=== PATIENT | male | born 1945 | race Caucasian/White ===

== ENCOUNTER 2017-03-07 13:17 | Emergency (ER) | payer MEDICARE ==
[2017-03-07 13:17] VITALS: BP 146/78
[~2017-03-07 13:17] MED LIST: DO NOT PROFILE T1 EA
[2017-03-07 14:01] LABS: BASO % 0.9 % (0.0-1.0); EOS # 0.2 10*3/uL (0.0-0.4); EOS % 4.3 % (1.0-4.0); HEMATOCRIT 40.3 % (42.0-52.0); HEMOGLOBIN 13.3 g/dl (14.0-18.0); LYMPH # 1.2 10*3/uL (1.3-4.4); LYMPH % 26.5 % (27.0-41.0); MEAN CELL VOLUME 90.2 fl (80.0-94.0); MEAN CORPUSCULAR HGB 29.8 pg (27.0-31.0); MEAN PLATELET VOLUME 9.2 fl (9.6-12.3); MONO # 0.6 10*3/uL (0.1-1.0); MONO % 11.8 % (3.0-9.0); NEUT # 2.6 10*3/uL (2.3-7.9); NEUT % 56.3 % (47.0-73.0); PLATELET COUNT AUTOMATED 143 10*3/uL (130-400); RED BLOOD COUNT 4.47 10*6/uL (4.50-5.90); RED CELL DISTRI WIDTH 14.3 % (0-14.5); WHITE BLOOD COUNT 4.7 10*3/uL (4.8-10.8)
[2017-03-07 14:24] LABS: ALBUMIN 3.4 gm/dl (3.1-4.5); ALKALINE PHOSPHATASE 79 U/L (45-117); BUN 15 mg/dl (7-24); CHLORIDE 105 mmol/L (98-107); CREATININE 0.85 mg/dL (0.70-1.30); SGOT/AST 12 IU/L (3-35); SGPT/ALT 19 U/L (12-78); SODIUM 138 mmol/L (136-145); TOTAL PROTEIN 6.9 gm/dL (6.4-8.2)
[2017-03-07 14:26] LABS: TROPONIN I < 0.015 ng/ml (<0.045)
[2017-03-07 14:40] LABS: ETHYL ALCOHOL < 3.0 mg/dl (<3)
[2017-03-07] MEDS ORDERED: EC NAPROSYN375 MG PO (16:00)
[2017-03-07] MEDS ORDERED: PROAIR HFA8.5 GM INH (16:01)
[2017-03-07] MEDS ORDERED: ULTRAM50 MG PO (16:02)
[2017-03-07] MEDS ORDERED: ATIVAN0.5 MG PO (16:03)
[2017-03-07 16:10] LABS: BILIRUBIN NEGATIVE (NEGATIVE); BLOOD NEGATIVE (NEGATIVE); CLARITY SL CLOUDY (CLEAR); COLOR YELLOW (YELLOW); GLUCOSE NEGATIVE (NEGATIVE); KETONE NEGATIVE (NEGATIVE); LEUKO ESTERASE NEGATIVE (NEGATIVE); NITRITE NEGATIVE (NEGATIVE); PH 5.5 (5.0-9.0); SPECIFIC GRAVITY 1.025 (1.005-1.030)
[2017-03-07 16:15] LABS: BACTERIA TRACE; MUCOUS 1+
[2017-03-07 16:16] LABS: CALCIUM OXALATE CRYSTALS 1+
[2017-03-07 16:19] LABS: URINE AMPHETAMINES < 1000 (1000ng/ml); URINE BARBITURATES < 200 (200ng/ml); URINE BENZODIAZEPINES > 200 (200ng/ml); URINE CANNABINOIDS (THC) > 50 (50ng/ml); URINE COCAINE < 300 (300ng/ml); URINE METHADONE < 300 (300ng/ml); URINE OPIATES < 300 (300ng/ml)
[2017-03-07 16:20] LABS: URINE PHENCYCLIDINE < 25 (25ng/ml)
== END 2017-03-07 19:52 | disposition admitted as inpatient to this hospital (09) ==
LOC: ED 13:17
PROVIDERS: Internal Medicine
DX: R45.851 Suicidal ideations (principal); F17.200 Nicotine dependence, unspecified, uncomplicated; Z88.6 Allergy status to analgesic agent

== ENCOUNTER 2017-03-07 14:24 | Inpatient (IN) | payer MEDICARE ==
[~2017-03-07] VITALS: Ht 177.8 cm; Wt 67.1 kg
--- NOTE | ~2017-03-07 | WRIGHTHP ---
[place], [place] PATIENT HISTORY AND PHYSICAL EXAM NAME: DARNELL JEAN BAPTISTE UNIT #: [id number] ROOM: 310 DOCTOR: LEAH MARTINS MD BIRTHDATE: [birth year] DOS: 03/08/2017 INITIAL PSYCHIATRIC EVALUATION. CHIEF COMPLAINT: "I just want to ." HISTORY OF PRESENT ILLNESS: This is a 72-year-old white male who presented to the Emergency Room at [facility] with a chief complaint of increased depression with suicidal ideation and a plan. The patient had reported that recently his had been hospitalized first here at [facility] and then transferred to [place] for hypoxia, leading to her brain . He was informed by the ICU doctors that because of this, he needed to make the decision to remove life support. He did agree with this and on the day prior to his admission here to the hospital at 11:00 a.m., He acquiesced to this decision causing his to pass away 4 minutes later. He blames himself for her , stating that he killed her and now there is no point for him to continue on without her. He did reach out to a english instructor and the english instructor did convince him to come to the Emergency Room at [facility] for intervention. The patient does have knives at home and states that this is how he would kill himself. He has not slept well since his 's passing. He has not eaten. He is very forlorn and does not see any reason to continue his life. He is admitted now to rule out any organic factors to attempt to stabilize on medication and to provide crisis intervention. PAST MEDICAL HISTORY: Significant for COPD, history of brain aneurysm and CVA. MENTAL STATUS: The patient is alert and oriented to person, place, and time. Mood is overwhelmingly depressed. He quietly cried as I talked to him with the tears streaming out of the corners of his eyes. He reported that he did sleep better last night and is willing to get up and try to have breakfast. He reports no desire though to engage in any activities and no desire to continue living. He does not have any active plans though and states that he would not do so. DIAGNOSIS: Major depression, recurrent. PLAN: I have already started him on Remeron 15 mg at bedtime. At this point, we will contact his english instructor to see if he can come into the hospital to offer further support. We will obtain grief counseling through the accounting assistant as well. Routine screening examination shows him to have a low vitamin D level of 10.4, so I will start him on vitamin D 50,000 International Units weekly. Additionally, he has a near pancytopenia with his white count and red count both low and platelets barely normal. I will defer any workup for the pancytopenia to the hospitalist. We will engage in individual and espitia milieu activity, returning home when psychiatrically stable. [place], [place] PATIENT HISTORY AND PHYSICAL EXAM NAME: DARNELL JEAN BAPTISTE UNIT #: [id number] ROOM: 310 DOCTOR: LEAH MARTINS MD BIRTHDATE: [birth year] LEAH MARTINS MD CM:HISPHYS:PATIENT HISTORY AND PHYSICAL EXAMINATION 0 8 LEAH MARTINS MD 03/08/17848 interface
--- NOTE | ~2017-03-07 | PR ---
[place], [place] PROGRESS NOTE NAME: DARNELL JEAN BAPTISTE UNIT #: [id number] ROOM: 310 DOCTOR: CONSUELO CONTRERAS,MY BIRTHDATE: [birth year] DOS: 03/09/2017 CHIEF COMPLAINT: "I don't want to kill myself because I am a Denominational and it is a sin." SUMMARY OF THE VISIT: The patient was interviewed in his room after almost 90% of his breakfast. The patient did not sleep much last night according to him, said he was up thinking of his . He has been for 30+ years and she is the one taking care of his medications; therefore, he does not know which is for which. He has not had medications for at least 1 week since she was hospitalized. The patient tears up when talking about his , Sonia. States he does not have much relationship with his sons and if he they would not pay much attention. When offered to get up and go to dining room, he states he does not want to because he will be very tired due to his medical conditions. MENTAL STATUS: The patient is alert and oriented x 3. Mood is overwhelmingly depressed. The patient cried when talked about his and sons, especially his . No overt hallucinations or delusions noted. PLAN: We will increase Remeron to 22.5 mg at bedtime. We will engage the patient in individual and espitia milieu activity. Plan is to discharge the patient home when he is psychiatrically stable. MY CONSUELO, DO LEAH MARTINS MD CM:HILDA [phone] MY CONSUELO DO 03/09/178 interface
--- NOTE | ~2017-03-07 | DS ---
[place], [place] DISCHARGE SUMMARY NAME: DARNELL JEAN BAPTISTE UNIT #: [id number] ROOM: 310 DOCTOR: LEAH MARTINS MD BIRTHDATE: [birth year] DOS: 03/13/2017 CHIEF COMPLAINT: "I just want to ." HISTORY OF PRESENT ILLNESS: This is a 72-year-old white male who presented to the Emergency Room at [facility] with a chief complaint of increased depression with suicidal ideation and a plan. The patient had just recently lost his . She was hospitalized initially at [facility] and then transferred to [place] for hypoxia, leading to her brain . He was informed by the ICU doctors there that because of this, he needed to make the decision to remove life support. He did agree to this and on the day prior to admission, life support was withdrawn at 11:00 a.m. leading to her ultimate . She 4 minutes after life support was pulled. He blames himself for her , stating that he killed her and now there is no point for him to continue on without her. He had been to his for 38 years and states that this is the only reason for him living. He reports immediate change in his mood with poor sleep and appetite, energy, anhedonia, crying spells, hopeless, helpless feelings, suicidal thoughts to shoot himself with a gun or stab himself. flying squad worker was consulted while he was in the Emergency Room at [facility] to attempt to discuss with him his reasons for living or not living. Despite this fact, the patient continued to state that he wanted to end his life. He is admitted now to the psychiatric unit in [facility] to rule out organic factors to attempt to stabilize on medication and to engage in individual and espitia milieu activity including grief work. PAST MEDICAL HISTORY: Remarkable for a history of a brain aneurysm, CVA and significant COPD and gait disturbance. SUMMARY OF HOSPITAL COURSE: The patient was admitted to the unit where he was started on Remeron 15 mg at bedtime. This did lead to significant improvement in sleep and appetite. Screening examinations upon admission showed him to have a low vitamin D level of 10.4, so vitamin D 50,000 International Units weekly was started. The patient engaged readily in group and individual activities. Over the course of time, he began to soften his complaints and stated that although he was depressed, he had a reason to live including his children, his grandchildren and his great grandchildren. His overall disposition started to improve and he was much more engaging in conversation and much more positive. Towards the latter part of his stay, he did report overriding anxiety during the day and he tended to be somewhat of a . He was started on Vistaril 25 mg 3 times a day and stated that it took just a little bit of the edge off and he noted no side effects. I did agree to increase the dose upon discharge and informed him to please call the unit if he was overly sedate. The patient was able to contract for safety, stating that he would not hurt himself sighting both his strong Temple beliefs as well as the need to not do anything that would jeopardize the health and psychiatric health of his children, grandchildren, and great grandchildren. The patient was discharged home to have followup at [facility]. MENTAL STATUS AT DISCHARGE: The patient is alert and oriented. Mood was [place], [place] DISCHARGE SUMMARY NAME: DARNELL JEAN BAPTISTE UNIT #: [id number] ROOM: 310 DOCTOR: LEAH MARTINS MD BIRTHDATE: [birth year] strongly trending towards euthymia. He was able to smile and joke upon discharge. There was no symptom suggestive of maribel or hypomania. There were no overt auditory or visual hallucinations. No delusions, no paranoia was present. He convincingly denied suicidal thoughts, homicidal thoughts or any self-injurious thoughts. Memory for the most part was fully intact. DISCHARGE DIAGNOSIS: Major depression, recurrent. PLAN: All of his prescriptions have been printed and will be sent home with him. He will have followup at [facility]. LEAH MARTINS MD CM:DISCHARG 8 9 LEAH MARTINS MD 03/13/17839 interface
--- NOTE | ~2017-03-07 | PR ---
[place], [place] PROGRESS NOTE NAME: DARNELL JEAN BAPTISTE UNIT #: [id number] ROOM: 310 DOCTOR: LEAH MARTINS MD BIRTHDATE: [birth year] DOS: 03/12/2017 CHIEF COMPLAINT: "I was raised Jew, I would never hurt myself, I know better." SUMMARY OF THE VISIT: The patient was interviewed as he sat in a Jami chair with his oxygen on. He had just completed his entire breakfast. He engaged readily in conversation. He reported to me that after much thought, he realizes that he would never kill himself. He still is very sad and despondent though and misses his greatly. He does report that he is sleeping better with the current medication regimen, but still requests that he has something for his nerves as he does get himself worked up when he focuses on his loss. He is not certain about what he plans to do post-discharge. He did mention that he was hoping to move in with his son; however, during treatment team, it was discussed that his son no longer wants him to move in with him. We will further explore what his actual possibilities are post-discharge. MENTAL STATUS: He is alert and oriented. Mood still does seem to be depressed with anxious overtones, but he is improving greatly. There is no hypomania or maribel. There are no overt auditory or visual hallucinations. No delusions, no paranoia. He convincingly denies suicidal ideation and voices positive plans for the future, both for himself, his children, his grandchildren and great grandchildren. Memory for the most part is intact. PLAN: I will augment the Remeron which is at a dose of 22.5 mg nightly with Vistaril 25 mg 3 times a day. Tipple Tender and nursing will explore possible placement options and we will then discharge to the least restrictive environment when psychiatrically stable. LEAH MARTINS MD CM:PNTRANS [phone] LEAH MARTINS MD 03/12/17 1017 interface
--- NOTE | ~2017-03-07 | PR ---
[place], [place] PROGRESS NOTE NAME: DARNELL JEAN BAPTISTE UNIT #: [id number] ROOM: 310 DOCTOR: NHI SOTO,AMBAR BIRTHDATE: [birth year] DOS: CHIEF COMPLAINT: "I am feeling better." SUBJECTIVE: The patient is seen today in his room, lying in bed, resting. He did engage in conversation, states that he wants to go home soon, states that he is feeling better, did sleep better last night, had his breakfast. He did talk about his and his work, what he did in his life and also his life with his . He has good memories. MENTAL STATUS EXAMINATION: The patient is alert, oriented to person, place and approximate to time. Fair eye contact. Speech is normal rate, tone, goal directed. Mood trending towards euthymia, though still gets teary talking about his . No maribel or hypomania. PLAN: The patient does need further stabilization. Shall continue his current meds and continue his care, shall try to engage him in espitia milieu as he is more stable. AMBAR HANKINS MD CM:PNTRANS [phone] AMBAR HANKINS MD 03/11/17 1222 interface
--- NOTE | ~2017-03-07 | PR ---
[place], [place] PROGRESS NOTE NAME: DARNELL JEAN BAPTISTE UNIT #: [id number] ROOM: 310 DOCTOR: NHI SOTO,AMBAR BIRTHDATE: [birth year] DOS: CHIEF COMPLAINT: "I did sleep better last night." SUBJECTIVE: The patient is 72-year-old male who is admitted with worsening depression after his 's passing, with sadness and stating that there is no point for him to continue living without her, was not sleeping, not eating. He is started on medicines to help sleep and appetite, which he has been taking and tolerating well. Today seen in his room, lying in bed with oxygen on. He has been better interactive today. He talked about his and his life with her. He has good memories, states that he will miss his . As regards to his mood, he is still depressed, sad, though he slept a little bit better last night and he had his breakfast as well. MENTAL STATUS EXAMINATION: The patient is alert, oriented to person, place and time, lying in bed. He is calm. He is interactive with fair eye contact. Speech is low tone. Mood still very depressed, constricted affect, gets teary eyes talking about his life with his . There is no evidence of psychosis. Still some talk about life without her and still having some fleeting thoughts of not living without his . PLAN: As regards to his meds, we shall continue Remeron. He is still very depressed and will need further stabilization and some grief counseling. AMBAR HANKINS MD CM:PNTRANS [phone] AMBAR HANKINS MD 03/10/17 1034 interface
--- NOTE | 2017-03-07 15:52 | NUR ---
DARNELL JEAN BAPTISTE a 72 year old M admitted via wheel chair from the ADMITTING as a voluntary admission. Arrived on unit at 1552. ALLERGIES:MORPHINE AND IBUPROFEN . Vital signs are: 97.8,63,148/74, 20, 97% ON 4 LITER VIA NASAL CANNULA. The client signed the following forms with stated understanding: Authorization For The Release of Medical Information, Clothing List, Consent to Voluntary Admission and Hospitalization, Consent and Release Forms/Receipt of Rights, Acknowledgement of Advance Directive Information, Behavioral Health Consent Form, and Informed Consent of Medications. Admitted under the services of Dr. LAKSHMI SOTO,[facility]. A search was conducted and hazardous articles were removed. Client was oriented to the unit. GUILLERMO GILLIAM
[2017-03-07] MEDS ORDERED: EC NAPROSYN375 MG PO (16:00)
[2017-03-07] MEDS ORDERED: PROAIR HFA8.5 GM INH (16:01)
[2017-03-07] MEDS ORDERED: ULTRAM50 MG PO (16:02)
[2017-03-07] MEDS ORDERED: ATIVAN0.5 MG PO (16:03)
--- NOTE | 2017-03-07 16:08 | NUR ---
DR MANCERA NOTIFIED OF PATIENT'S ADMISSION, PATIENT WILL BE UNDER THE CARE OF DR. VIGIL.
--- NOTE | 2017-03-07 16:40 | NUR ---
DR. STEVENS IN TO SEE PATIENT.
[2017-03-07 17:08] VITALS: BP 148/74
[2017-03-07 20:00] VITALS: BP 135/73
--- NOTE | 2017-03-07 20:00 | NUR ---
PATIENT ALERT AND ORIENTED. PATIENT DEPRESSED, HOPELESS, HELPLESS. PATIENT CONTINUES TO HAVE SUIDICAL IDEATIONS. PATIENT VERBALIZED TO NURSING STAFF THAT HE DOES NOT WANT TO LIVE ANYMORE SINCE LOSING HIS . NURSING TALKED TO PATIENT ABOUT PHONE CALL RECEIVED REGARDING HIS LATE 'S WAKE. PATIENT STATED THAT HE WAS AWARE OF THE WAKE AND WOULD CALL HIS SON IN THE MORNING. PATIENT THEN STATED THAT NO ONE IN HIS FAMILY WOULD EVEN COME TO VISIT HIM OR HIS AND THAT SHE WAS ALL THAT HE HAD. PATIENT WITH NO HALLUCINATIONS OR DELUSIONS. PATIENT ISOLATIVE TO HES ROOM . CONTINENT OF BOWEL AND BLADDER. SEE [facility] FLOW SHEET FOR SPECIFIC MONITORING
--- NOTE | 2017-03-08 03:28 | NUR ---
24 HR chart check completed.
[2017-03-08 04:22] LABS: BASO % 0.9 % (0.0-1.0); EOS # 0.3 10*3/uL (0.0-0.4); EOS % 6.8 % (1.0-4.0); HEMATOCRIT 37.2 % (42.0-52.0); HEMOGLOBIN 12.1 g/dl (14.0-18.0); LYMPH # 1.8 10*3/uL (1.3-4.4); LYMPH % 41.5 % (27.0-41.0); MEAN CELL VOLUME 90.1 fl (80.0-94.0); MEAN CORPUSCULAR HGB 29.3 pg (27.0-31.0); MEAN CORPUSCULAR HGB CONC 32.5 g/dl (33.0-37.0); MONO # 0.6 10*3/uL (0.1-1.0); MONO % 13.2 % (3.0-9.0); NEUT # 1.6 10*3/uL (2.3-7.9); NEUT % 37.6 % (47.0-73.0); PLATELET COUNT AUTOMATED 137 10*3/uL (130-400); RED BLOOD COUNT 4.13 10*6/uL (4.50-5.90); RED CELL DISTRI WIDTH 14.2 % (0-14.5); WHITE BLOOD COUNT 4.2 10*3/uL (4.8-10.8)
[2017-03-08 04:51] LABS: ALBUMIN 3.1 gm/dl (3.1-4.5); ALKALINE PHOSPHATASE 65 U/L (45-117); BUN 16 mg/dl (7-24); CHLORIDE 106 mmol/L (98-107); CHOLESTEROL 146 mg/dL (<200); CREATININE 0.91 mg/dL (0.70-1.30); HDL CHOLESTEROL 46 mg/dl (40-60); LDL CHOLESTEROL 86 mg/dL (9-159); POTASSIUM 4.4 mmol/L (3.5-5.1); SGOT/AST 12 IU/L (3-35); SGPT/ALT 15 U/L (12-78); SODIUM 141 mmol/L (136-145); TOTAL PROTEIN 6.1 gm/dL (6.4-8.2); TRIGLYCERIDES 70 mg/dl (<150); VLDL CHOLESTEROL 14 mg/dL (6-40)
--- NOTE | 2017-03-08 06:12 | NUR ---
Q 15 MINUTE CHECKS MAINTAINED. SLEPT > 8 HOURS THROUGHOUT SHIFT. VOICES NO COMPLAINTS OF PAIN OR DISCOMFORT AT THIS TIME
[2017-03-08 07:57] LABS: VITAMIN D, 25-HYDROXY 10.4 ng/mL (30-100)
[2017-03-08 08:08] VITALS: BP 141/90
--- NOTE | 2017-03-08 08:24 | NUR ---
PT REQUESTING INHALER D/T SOB IN THE AM'S ALONG WITH PRN BREATHING TX. RT NOTIFIED AT THIS TIME VIA [facility].
--- NOTE | 2017-03-08 11:21 | NUR ---
Goals,Puzzle with Music Patient did not attend group this morning. Patient was in bed and refused to join group. This AC encouraged patient to come meet and vist with the other patients. Patient stated "I dont like people and I dont like to be around people." Patient was still encouraged if he changed his mind at anytime he was welcome to come join. Patient stated "I wont."
--- NOTE | 2017-03-08 11:58 | NUR ---
PHYSICAL THERAPY PAtient not avaialable for PT evaluation at this time. Will attempt at later time or date. Thank you for this referral. Irena Staples,PT
--- NOTE | 2017-03-08 12:00 | NUR ---
Patient not available for OT evaluation at this time as he was soundly sleeping. OTR will attempt at a later time. Lidia Lawrence OTR/curtis
--- NOTE | 2017-03-08 12:02 | NUR ---
RO spoke with vesta, scretary at [facility] per pt. to see if the president financial institution from that [place] had been the president financial institution that pt. had reached out to when he was feeling like "shotting" himself with a gun. Vesta states that she will ask their president financial institution there, but pt. is not on their roll there or at [facility]. vesta states if it wasn't their president financial institution, then it may have been a prieest out of [place]. pt. states it was from [facility] and gave permission for RO to call [facility] also.
--- NOTE | 2017-03-08 12:54 | NUR ---
PHYSICAL THERAPY Nursing screen for PT received. Orders for PT present. Irena Staples,PT
--- NOTE | 2017-03-08 14:03 | NUR ---
PHYSICAL THERAPY PAtient very depressed: has not left room or eaten food. Will attempt PT at a later date when more appropriate. Thank you for this referral. Irena Staples,PT
--- NOTE | 2017-03-08 14:04 | NUR ---
OTR arrived on 3N for OT evaluation this pm. Staff indicated that patient has not left his room today and has not eaten breakfast or lunch. OTR will attempt evaluation at a later date. Lidia Lawrence OTR/Gayle
--- NOTE | 2017-03-08 14:48 | NUR ---
pt did remember the name of his jain, abdirahman Villavicencio in [place]. 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 pt. gave SW permission to call and leave message for Investor Stanley Fulton to come visit him. SW left vm to have labor supervisor call her or to come visit pt. tomorrow. pt. would like to go home alex, referrals also being sent out for [facility] for 30 day rehab stay by [facility].
--- NOTE | 2017-03-08 15:16 | NUR ---
RO spoke with Federica, Rate Engineer [employer] Rapp , who asked if he could come up tomorrow and see pt. RO let Federica know that visiting hrs. are at 12;30pm and she states her will be here at that time to visit with pt. Federica also states that the pt. has already been cremated and the service on Sunday is "just" a memorial service, no veiwing. RO will discuss with pt and family tomorrow during the family session.
--- NOTE | 2017-03-08 17:05 | NUR ---
Servando has been noted to be isolative to his room throughout this day and requested to have his meals in his room. He did eat all meals with a good appetite and fluid intake has been adequate. On 1:1 interaction he is verbal discussing events leading to his hospitalization. He reports that he attempted to call a physician "to get a nerve pill or something after my . That woman on the phone got smart with me and I said I may as well shoot myself." He then stated that the police showed up @ his place of residence and "made me come here." He does express suicidal ideation, however, during his conversation with staff. States, "I may as well . I have nothing to live for anymore." He ventilated feelings of sadness regarding his recent loss and also was verbal regarding his limited mobility. He then became tearful and support was provided. He has utilized his O2 @ 4L/min via nasal cannula and requested breathing treatment in the early part of this day. Dr. Coombs in to see him this evening. Servando expresses that he experiences back pain and rates this as a "10." Dr. Coombs was informed of c/o pain and need for oxygen order with orders received. Servando states that he does not wish to see the hospital torpedo worker when asked, but did state that he would like to see the nurse unit manager of his advent, Stanley Stoll. Refer to social service note regarding this. His energy level is low with intermittent napping. He was medicated with ativan 1 mg po @ 0920 and 1604 to assist him to relax. Ativan is effective. Refer to [facility] flowsheet for specific monitoring.
--- NOTE | 2017-03-08 18:40 | NUR ---
Servando was administered [place] 5/325 (two tabs) as prescribed routinely and this was effective in alleviating his discomfort.
--- NOTE | 2017-03-09 05:33 | NUR ---
24 HR chart check completed.
--- NOTE | 2017-03-09 05:45 | NUR ---
PT REMAINED ISOLATIVE TO ROOM FOR DURATION OF SHIFT. PT CONSUMED HS SNACK STATING ON 04-09 I'M JUST NOT READY TO BE AROUND ANYONE I REALLY JUST WANT LEFT ALONE". PT DISCUSSES PASSIVE WISH WITH NO SPECIFIC PLAN, WITH OUT HER I WOULD JUST RATHER BE . PT AGREED TO CONTRACT FOR SAFETY WITH SUICDAL THOUGHTS. PT PROVIDED WITH EMOTIONAL SUPPORT AND GIVEN TIME TO EXPRESS FEELING OF GRIEF. PT PROVIDED MED EDUCATION, REPORTING BACK PAIN LEVEL OF 8 ON A SCALE OF 1-10 STATING THAT IT INCREASES WITH MOVEMENT. PT GIVEN NORCO ROUTINE ORDERED AND WAS SLEEPING AT TIME OF REASSESSMENT OF PAIN LEVEL. PT SLEPT 8 HOURS WITH OUT INTURRUPTION. CONTINUE TO ENCOURAGE PARTICIPATION AND DECREASE ISOLATION TO ROOM . DUO NEBS ADMINISTERED BY RESPIRTORY ORDERED, O2 4L NC, TOLERATING WELL.
--- NOTE | 2017-03-09 06:33 | NUR ---
PT REPORTING PAIN LEVEL OF 7 TO BACK. SCHEDULED NORCO ADMINISTERED. PT ENCOURAGED TO SHOWER AND ATTEND BREAKFAST. PT TEARFULL STATING " I JUST DONT WANT TO SEE OR TALK TO ANYONE RIGHT NOW, I KNOW YOU HAVE TO TRY BUT I'M JUST NOT READY YET". PT ENCOURAGED TO PARTICIPATE AND GIVEN TIME TO EXPRESS FEELING OF GRIEF.
[2017-03-09 07:44] VITALS: BP 124/60
--- NOTE | 2017-03-09 08:21 | NUR ---
03/08/17 Afternoon-Movies Patient did not attend group. patient in bed and refuses to come to group. Educated patient on the benifits of leaving room and coming to group. Patient stated "I'll think about it. Maybe tomorrow."
--- NOTE | 2017-03-09 10:00 | NUR ---
PT IS ALERT AND ORIENTED TO PERSON, PLACE, TIME AND SITUATION. MEMORY APPEARS TO BE INTACT. RESPIRATIONS EASY ON ROOM AIR. MOOD IS DEPRESSED, AFFECT IS SAD. SPEECH IS WNL AND COHERENT, ABLE TO MAKE NEEDS KNOWN WITHOUT DIFFICULTY. THIS NURSE AND PT SAT IN ROOM AND TALKED AT LENGTH. PT REVIEWED REASON FOR ADMISSION PT STATES "MY JUST SUNDAY. I HAD TO TELL THEM TO TAKE HER OFF THE MACHINES. I'VE JUST BEEN OVERCOME WITH GRIEF. I MISS HER SO MUCH. SHE WAS JUST PERFECT AND BEAUTIFUL IN EVERYWAY. SHE USED TO TAKE NERVE PILLS AND I JUST REALLY NEEDED SOMETHING TO HELP WITH MY NERVES, SO I CALLED MY PCP AND THE GIRL THAT ANSWERED THE PHONE JUST WANTED TO ARGUE WITH ME SO I WAS MAD AND I SAID 'WELL MAYBE I'LL JUST SHOOT MYSELF THEN.'" PT STATES "I NEVER SHOULD HAVE SAID THAT. I HAVE NEVER WANTED TO ACTUALLY HURT MYSELF. I SAID IT OUT OF FRUSTRATION AND NOW I'M HERE. 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 I NEVER HAVE AND I NEVER WILL HARM MYSELF. I JUST HAVE TO KEEP GOING, THATS HOW LIFE IS, YA KNOW? 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 PT DENIES HALLUCINATIONS, NO RESPONSE TO INTERNAL STIMULI NOTED. NO PARANOIA/DELUSIONS NOTED. PT ENCOURAGED TO ATTEND GROUPS, PT STATES "I'M JUST NOT MUCH OF A PEOPLE PERSON." MED COMPLIANT. NO DISTRESS NOTED. O2 CONTINOUS AT 4L VIA NC MAINTAINED, SCHEDULED DUONEBS ADMINISTERED BY RESPIRATORY THERAPISTS. Q15 MIN SAFETY CHECKS MAINTAINED, FALLING STAR PROGRAM MAINTAINED, PT ENCOURAGED TO RING ANDREA FOR ASSISTANCE, PT VERBALIZED UNDERSTANDING AND HAS BEEN COMPLIANT WITH FALL PRECAUTIONS. PT EDUCATED ABOUT NEED FOR URINE SAMPLE. PT WILL ALERT NURSE WHEN HE CAN PROVIDE SAMPLE. REFER TO [facility] FLOWSHEET FOR SPECIFIC MONITORING.
--- NOTE | 2017-03-09 10:50 | NUR ---
Goals,Exercise & March Patient did not attend group this morning. Patient refuses to leave his room. Reminded patient that he said yesterday that he may come to group this morning. Patient apologized and said he would not be coming. Patient said he would think about participating in group this afternoon.
--- NOTE | 2017-03-09 11:00 | NUR ---
CINTIA ZAMBRANO CNP OF HOSPITALIST GROUP MADE AWARE OF ABNORMAL LABS AND URINE NOTED TO BE DARK RENA/REDDISH IN COLOR. STATES SHE WILL BE UP TO SEE PT SHORTLY.
--- NOTE | 2017-03-09 11:51 | NUR ---
PT C/O BREATHROUGH PAIN TO BACK, REQUESTED PAIN MEDICATION, DISCUSSED WITH CINTIA ZAMBRANO, PRN ULTRAM 50MG ONE TAB PO GIVEN AT THIS TIME, WILL MONITOR FOR EFFECTIVENESS.
--- NOTE | 2017-03-09 12:19 | NUR ---
CINTIA ZAMBRANO CNP OF HOSPITALIST GROUP HERE TO SEE PT AT THIS TIME. ASSESSED PT.
--- NOTE | 2017-03-09 13:18 | NUR ---
RO met with step-son, Fazal and family friend, shilpi, pastor Stanley Rapp from [facility] and pt. pt. teaful and grieiving loss of his from 03/06/17 as well as his step-son, fazal and "best" friend Shilpi. Fazal has agreed to take the guns from the home and will call back when they have them removed.
--- NOTE | 2017-03-09 13:49 | NUR ---
PHYSICAL THERAPY PAtient in group meeting with family and social economist. Will attempt at a later date or time. Thank you for this referral. Irena Staples,PT
[2017-03-09 14:37] LABS: BILIRUBIN NEGATIVE (NEGATIVE); BLOOD NEGATIVE (NEGATIVE); CLARITY CLEAR (CLEAR); COLOR YELLOW (YELLOW); GLUCOSE NEGATIVE (NEGATIVE); KETONE NEGATIVE (NEGATIVE); LEUKO ESTERASE NEGATIVE (NEGATIVE); NITRITE NEGATIVE (NEGATIVE)
--- NOTE | 2017-03-09 14:43 | NUR ---
SW met with grp. again, step son, mathematician research and friend Pat-pt. states he would like to ventually get back home but understands if he needs to go to [place] [facility]. pt. Step-son Fazal and friend pat will help assist pt. with d/c plans after his 30 day rehab stay. pt stpe-sonfazal can be reached at ; Pat-friend , Mental Health Program Director Stanley Rapp can be reached at . pt. is grieving the loss of his as well as his step-son (she was his mother) on 03/06/17. Please let them visit as log as they want, within reason, due to their grieving process. The step son may visit tomorrow, but his mother's memorial service is tomorrow, but he will stop bye to visit pt. on Sunday before he returns to [facility]. on Sunday.
[2017-03-09 14:47] LABS: BACTERIA TRACE; RBC 0-2 rbc/hpf (0-2); WBC 0-2 wbc/hpf (0-5)
--- NOTE | 2017-03-09 15:11 | NUR ---
PHYSICAL THERAPY PAtient requests no PT this date. Will attempt at a later date. Thank you for this referral. Irena Staples,PT
--- NOTE | 2017-03-09 15:13 | NUR ---
[facility] & [facility] Patient did not attend group. Patient was in a meeting with RO.
--- NOTE | 2017-03-09 15:16 | NUR ---
CINTIA ZAMBRANO COOK HELPER DESSERT MADE AWARE OF URINALYSIS RESULT 2.0 UROBILIRUBIN AND NEGATIVE CHEST XRAY. STATES SHE WILL ORDER ADDITIONAL LABS FOR TOMORROW.
--- NOTE | 2017-03-09 15:41 | NUR ---
RO sent referrals also out to: [facility], [facility], [facility], and [facility]. RO also called and spoke with sudhir, adm. dir. for [facility] and EL, Sudhir had some questions as to whether this would be ST or LT, SW said ST for possibly 30 days and if pt. was still suicidal. RO states No, explained eventa that led upon to pt. making threats and family dynamics. Sudhir states she will try and call RO back by 4pm today to see if pt. can be considered for admission next week after she speaks to the DON. Sudhir also asked if PT/OT notes could be forwarded. RO forwarded notes, but PT/OT will not begin until next week according to pt conversation with PT/OT evaluators today. Kemar, the kaia STARR for the unit will follow up next week with d/c plans. This SW introduced Kemar to the pt. and let him know that Kemar would be helping to facilitate d/c plans.
--- NOTE | 2017-03-09 15:45 | NUR ---
Dc met with pt. pt. not as tearful and open to going to a rehab before going directly home. pt. affect brighter after his visit today with his step-son David, family fredallas Hidalgo and Any Commodity Sales Deliverer Stanley. pt. states "I understand there is a process before i can go home". pt. denies SI and affect is brighter. DC did discuss pt. not being able to go to memorail service tomorrow and pt staes "I wish i could, but understand why i can't, she isn't there anyway, just ashes".
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
[2017-03-09 20:00] VITALS: BP 114/59
--- NOTE | 2017-03-09 22:00 | NUR ---
PT SLEEPING IN BED AT THIS TIME SCHEDULED NORCO EFFECTIVE.
--- NOTE | 2017-03-10 04:08 | NUR ---
PT ISOLATIVE TO ROOM, MOOD DEPRESSED AND IRRITABLE. 1-1 PROVIDED WITH PT GIVEN TIME TO EXPRESS GRIEF, PT VOICING ANGER IN REGARDS TO OF , REMINISING ON POSITIVE MEMORIES AND ECPRESSING CONCERNS OVER CARING FOR SELF UPON DISCHARGE. PT EDUCATED ON INCREASE IN HS REMERON VERBALIZED UNDERSTANDING. PT CONTINUES TO DENY PLAN OF SUICIDE STATING NIUEAN CATHOLICS DO NOT COMMIT SUICIDE, BUT STATES PASSIVE WISH AND DESIRE TO BE WITH . PT ENCOURAGED TO ATTEND HS SNACK BUT REFUSES STATING I DO NOT WANT TO BE AROUND ANYBODY RIGHT NOW. O2 4L NC, RECIEVING DUONEBS FROM RESPIRTORY ORDERED, TOLERATING WELL. CONTINUE POC, CONTINUE TO ENCOURAGE PARTICIPATION IN GROUP.
--- NOTE | 2017-03-10 04:48 | NUR ---
24 HR chart check completed.
[2017-03-10 05:11] LABS: BASO % 0.5 % (0.0-1.0); EOS # 0.3 10*3/uL (0.0-0.4); HEMATOCRIT 35.8 % (42.0-52.0); HEMOGLOBIN 11.9 g/dl (14.0-18.0); LYMPH # 1.4 10*3/uL (1.3-4.4); LYMPH % 31.7 % (27.0-41.0); MEAN CELL VOLUME 89.3 fl (80.0-94.0); MEAN CORPUSCULAR HGB 29.7 pg (27.0-31.0); MEAN CORPUSCULAR HGB CONC 33.2 g/dl (33.0-37.0); MONO # 0.5 10*3/uL (0.1-1.0); MONO % 11.5 % (3.0-9.0); NEUT # 2.2 10*3/uL (2.3-7.9); NEUT % 50.1 % (47.0-73.0); PLATELET COUNT AUTOMATED 144 10*3/uL (130-400); RED BLOOD COUNT 4.01 10*6/uL (4.50-5.90); RETICULOCYTE % 1.01 % (0.50-2.50); WHITE BLOOD COUNT 4.4 10*3/uL (4.8-10.8)
[2017-03-10 05:26] LABS: ALKALINE PHOSPHATASE 62 U/L (45-117); BUN 22 mg/dl (7-24); CHLORIDE 107 mmol/L (98-107); CREATININE 0.87 mg/dL (0.70-1.30); IRON 84 ug/dL (65-175); SGOT/AST 11 IU/L (3-35); SGPT/ALT 16 U/L (12-78); SODIUM 144 mmol/L (136-145); TOTAL IRON BINDING CAPACITY 213 ug/dl (250-450); TOTAL PROTEIN 5.9 gm/dL (6.4-8.2)
--- NOTE | 2017-03-10 06:59 | NUR ---
PT REPORTING PAIN LEVEL OF 6 TO BACK. STATED THAT HE SLEPT POORLY FROM 3 AM UNTIL 7 AM WITH INTERMITTENT VIVID DREAMS.
[2017-03-10 08:02] LABS: FERRITIN 138.7 ng/mL (22.0-322.0)
[2017-03-10 08:10] VITALS: BP 139/62
--- NOTE | 2017-03-10 12:00 | NUR ---
1:1 PROVIDED FOR PATIENT'S GREIF OF SPOUSE PASSING. PATIENT IS GOING THROUGH GREIFING PROCESS WITH ANGER OF WHY SPOUSE PASSED AND WANTS ANSWERS. PATIENT DEMENDING TO HAVE SHOWER AND HAVE LINEN CHANGED. ALSO REQUESTING TO BE DISCHARGED. REMINDED PATIENT OF HSI RIGHT'S AND A WRITTEN LETTER OF REQUEST WILL NEED TO BE DONE. PATIENT INFORMED THAT DISCHARGE IS UP TO THE PSYCHIATRIST AND THAT HOME HEALTH SERVICES WILL BE NEED TO BE SET UP PRIOR TO DISCHARGE. DR. HANKINS, COVERING PSYCHIATRIST NOTIFIED OF PATIENT'S REQUEST. PATIENT WAS SHOWERED AND PROVIDED WITH NEW LINEN. PATIENT NOW CALM AND APOLOGIED FOR EARLIER BEHAVIOR. DR. MARTINS TO BE UPDATED SUNDAY FOR DISCHARGE.
--- NOTE | 2017-03-10 14:54 | NUR ---
PATIENT'S PLAN FOR DISCHARGE IS ON SUNDAY, PATIENT INFORM AND IS HAPPY ABOUT DISCHARGE ON SUNDAY.
--- NOTE | 2017-03-10 18:10 | NUR ---
janine here to complete passr
[2017-03-10 19:48] VITALS: BP 139/70
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
--- NOTE | 2017-03-11 00:30 | NUR ---
PT TEARFULL STATING HE CANNOT SLEEP AND HAVING RACING TOUGHTS. 1-1 PROVIDED PT GIVEN TIME TO EXPRESS GRIEF AND ANGER. PT OFFERED PRN ATIVAN AND EXCEPTED.
--- NOTE | 2017-03-11 01:10 | NUR ---
PT SLEEPING AT THIS TIME PRN ATIVAN EFFECTIVE
--- NOTE | 2017-03-11 05:48 | NUR ---
24 HR chart check completed.
--- NOTE | 2017-03-11 07:42 | NUR ---
ASKED PATIENT ABOUT PAIN, NORCO EFFECTIVE, STATES "ITS WORKING"
[2017-03-11 07:52] VITALS: BP 119/68
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
--- NOTE | 2017-03-11 16:25 | NUR ---
DR. WEST NOTIFIED OF ABNORMAL LABS. NEW ORDER FOR BMP IN AM, ORDER PLACE.
--- NOTE | 2017-03-11 17:03 | NUR ---
PATIENT IS ALERT AND ORIENTED TO PERSON, PLACE, TIME AND SITUATION;ABLE TO VOICE NEEDS. DENIES ANY HALLUCINATION, DELUSIONS, HI/SI. MOOD IS CALM DEMEANOR, NO OUT ALEX NOTED THROUGHOUT SHIFT. 1-2 PERSON ASSIST WITH ACTIVITIES OF DAILY LIVING. CONTINENT OF BOWEL AND BLADDER. ENCOURAGE FLUIDS DURING THE DAY. FLUID INTAKES 1440CC SO FAR. INTERACTED WITH STAFF AND OTHER PATIENTS, PARTICIPATED IN GROUP SESSIONS, PLAYING Polyera. NO FURTHER COMPLAINTS OF PAIN NOTED FOR THE SHIFT. REPOSITIONED FREQUENTLY FOR COMFORT. Q 15 MINUTE SAFETY CHECKS. CONTINUE TO MONITOR FOR AGGRESSION/BEHAVOIRS AND REDICRECT NEEDED. MEDICATION COMPLIANT WITH MEDICATION EDUCATION PROVIDED.
--- NOTE | 2017-03-11 17:09 | NUR ---
PATIENT IS ALERT AND ORIENT TO PERSON, PLACE, TIME AND SITUATION; ABLE TO VOICE NEEDS. DENIES ANY HALLUCINATIONS, DELUSIONS, HI/SI OR PAIN. MOOD IS DEPRESSED. INTERACTIVE WITH STAFF. INDEPENDANT WITH ACTIVITIES OF DAILY LIVING. ONE PERSON ASSIST NEEDED. MEAL INTAKES ARE GOOD WITH ADEQUATE FLUIDS. MEDICATION COMPLAINT WITH EDUCATION PROVIDED. Q 15 MINUTE SAFETY CHECKS MAINTAINED. CONTINUE TO MONITOR FOR VOICED SUICIDAL IDEATIONS, PROVIDED ONE ON ONE FOR PATIENT TO EXPRESS FEELINGS.
[2017-03-11 19:59] VITALS: BP 117/66
--- NOTE | 2017-03-11 21:00 | NUR ---
PT ALERT AND ORIENTED X4. REMAINS ISOLATIVE TO ROOM. EXTENSIVE 1-1 PROVIDED, DISCUSSED CONFLICT WITH ANU, REMORSE WITH STOPPING LIFE SUPPORT, PT RREPORTING "NEVER BEING A PEOPLE PERSON". PT EDUCATED ON GOALS FOR DISCHARGE. PT WISHES TO REMAIN AT HOME. DISCUSSED THAT HE CAN DO THINGS FOR HIMSELF. DISCUSSED OPTIONS FOR NH, ASSISTED LIVING, HOME HEALTH AND THAT HIS SAFETY IS #1 CONCERN. PT DENYING PLAN FOR SUICIDE BUT STATES THAT IT SHOULD BE HIS RIGHT TO DECLINE, NOT TAKE CARE OF HIMSELF AND IF HE WISHES. PT REPORTS HAVING A FULL LIFE AND THAT HE HAS ACCOMPLISHED HIS GOALS. PT CONTINUING TO REFUSE TO ATTEND GROUP OR COME OUT OF ROOM FOR MEALS. PT WROTE LETTER OF INTENT TO DR. MARTINS WANTING TO BE DISCHARGED. PT INFORMED THAT THERE HAS TO BE A GIVE AND TAKE AND THAT HE NEEDS TO SHOW IMPROVMENT AND THAT GRIEF CAN BE A LONG PROCESS. PT REPORTING RACING THOUGHTS AND REQUESTING ATIVAN STATING THAT IT GAVE HIM SOME RELIEF AND FACILITATED SLEEP. PT REMINISCING ON PAST MEMORIES OF . CONTINUE ENCOURAGEMENT, CONTINUE TO ALLOW TO TIME TO EXPRESS FEELINGS OF GRIEF, CONTINUE TO ENCOURAGE PARTICIPATION IN GROUP. CONTINUE MED EDUCATION REINFORCEMENT.
--- NOTE | 2017-03-11 22:00 | NUR ---
PT SLEEPING AT THIS TIME PRN ATIVAN EFFECTIVE
--- NOTE | 2017-03-12 04:10 | NUR ---
24 HR chart check completed.
[2017-03-12 07:37] LABS: BUN 29 mg/dl (7-24); CHLORIDE 103 mmol/L (98-107); CREATININE 0.98 mg/dL (0.70-1.30); POTASSIUM 4.2 mmol/L (3.5-5.1); SODIUM 139 mmol/L (136-145)
[2017-03-12 07:50] VITALS: BP 136/87
--- NOTE | 2017-03-12 08:50 | NUR ---
CINTIA ZAMBRANO CNP OF HOSPITALIST GROUP HERE TO SEE PT AT THIS TIME, UPDATE GIVEN.
--- NOTE | 2017-03-12 08:58 | NUR ---
TREATMENT TEAM WAS HELD WITH THE FOLLOWING: DR. MARTINS, PLUG SHAPER HAND, RNs, AT, AND SW. DR. MARTINS SPOKE WITH PT AND PT AGREED TO BE DISCHARGED ON SUNDAY. . DR. MARTINS WANTS RN AND SW TO SPEAK WITH PT TO SEE IF HE WANTS A 30 DAY REHAB STAY. PASRR WAS COMPLETED IN [place] AND REFERRALS WERE SENT TO FACILTIES. [facility] MAY HAVE A BED THIS WEEK IN [place].
--- NOTE | 2017-03-12 10:00 | NUR ---
PT IS ALERT AND ORIENTED TO PERSON, PLACE, TIME AND SITUATION. MEMORY APPEARS INTACT. RESPIRATIONS EASY ON 4L NC. MOOD IS DEPRESSED, ANXIOUS AT TIMES. AFFECT IS SAD. SPEECH IS WNL AND COHERENT, ABLE TO MAKE NEEDS KNOWN WITHOUT DIFFICULTY. PT IS CALM AND COOPERATIVE, REMAINS ISOLATIVE TO ROOM, PT CAME OUT OF ROOM FOR BREAKFAST AND ATE IN QUIET ROOM THEN REQUESTED TO RETURN TO ROOM. PT DENIES SI/HI, INTENT OR PLAN. PT CONTINUES TO STATE TO STAFF THAT "I'M RELIGION. IT WOULD BE A SIN TO KILL MYSELF. I'VE NEVER WANTED TO DO THAT AND I NEVER WILL. I HAVE TOO MUCH TO LIVE FOR. MY SONS AND MY GRANDKIDS WANT ME AROUND. I'LL JUST KEEP DOING THE BEST I CAN." PT DENIES HALLUCINATIONS, NO RESPONSE TO INTERNAL STIMULI NOTED. NO PARANOIA/DELUSIONS NOTED. PT MED COMPIANT, NEW MEDICATION VISTARIL THREE TIMES DAILY ROUTINE ORDERED TODAY BY DR. MARTINS D/T PT C/O ANXIETY. PT EDUCATED ON NEW MEDICATION WITH VERBALIZED UNDERSTANDING. MED GIVEN ORDERED THIS AM, ENCOURAGED PT TO REPORT EFFECTIVENESS TO THIS RN SO IT CAN BE RELAYED TO DR. MARTINS. PT STATES "OK, I WILL." NO DISTRESS NOTED. Q15 MIN SAFETY CHECKS MAINTAINED, REFER TO [facility] FLOWSHEET FOR SPECIFIC MONITORING.
--- NOTE | 2017-03-12 10:00 | NUR ---
FRIEND CALLED RO TO REQUES THAT SW BE PRESENT WHEN SHE TELLS PT THAT STEP SON WALKED AWAY FROM ASSISTING HIM. RO WILL SEE HER AND SON AT VISITATION.
--- NOTE | 2017-03-12 11:44 | NUR ---
Goals,Exercise and [facility] emergency department Patient did not attend group. Patient in discussion with his nurse
--- NOTE | 2017-03-12 14:30 | NUR ---
Games Patient did not attend group this afternoon. Patient was encouraged to come to group but refused x2.
--- NOTE | 2017-03-12 14:34 | NUR ---
RO MADE HOME HEALTH REFERAL TO [facility] Joann FLORENTINO. INFORMATINO GIVEN DIRECTLY TO MISHEL.
--- NOTE | 2017-03-12 15:05 | NUR ---
RO SCHEDULED FOLOW UP WITH [facility] FOR April AT 3:15PM.
--- NOTE | 2017-03-12 15:12 | NUR ---
RO SCHEDULED FOLLOW UP WITH MEDICAL PROVIDER DR. KELSEY RAMON Mar AT 1PM. AT THE [facility] OFFICE.
--- NOTE | 2017-03-12 15:25 | NUR ---
Occupational Therapy evaluation offered this date. Patient believes he is going home tomorrow and that he "is doing the best he can everyday". Patient pleasantly declines OT. D/c OT order. Lidia Lawrence OTR/l
--- NOTE | 2017-03-12 15:29 | NUR ---
PHYSICAL THERAPY PAtient requests no PT this date. Reports he is at his usual baseline. Patient reports he is going home tomorrow. Thank you for this referral. Irena Staples,PT
[2017-03-12 20:00] VITALS: BP 135/74
--- NOTE | 2017-03-12 22:00 | NUR ---
PT COMPLIANT WITH HS MEDICATIONS. APPTETITE GOOD FOR SNACK. VERY VERBAL THIS EVENING REGARDING EVENTS PRIOR TO ADMISSION ABOUT OF HIS . STATED THE FIRST 3 DAYS OF HER WERE THE WORST. ALSO STATED THAT HE HADN'T SLEPT WELL & WHAT HE STATED WAS MISINTERPRETED & TAKEN OUT OF CONTEXT. STATED HE IS NOT GOING TO DO ANY HARM TO HIMSELF WHEN HE RETURNS HOME. 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 STATED HE BELIEVES HIS IS BETTER OFF NOW & IS IN HEAVEN WITH GOD.
--- NOTE | 2017-03-13 02:59 | NUR ---
RESP THERAPY NOTIFIED THAT CLIENT REQUESTING RESP TX. LUNGS DIMINISHED BUT CLEAR. NC ON PER ORDERS. SLIGHT UPPER AIRWAY WHEEZE NOTED
--- NOTE | 2017-03-13 05:33 | NUR ---
24 HR chart check completed.
--- NOTE | 2017-03-13 06:53 | NUR ---
PT HAS BEEN OBSERVED ON Q 15 MIN CHECKS & HAS SLEPT QUIETLY THROUGHOUT THE SHIFT PAST 2200.
[2017-03-13 07:58] VITALS: BP 130/87
[2017-03-13] MEDS ORDERED: MIRTAZAPINE45 MG PO (08:04)
[2017-03-13] MEDS ORDERED: Vitamin D PO (08:04)
[2017-03-13] MEDS ORDERED: HYDROXYZINE PAM25 M1 PO (08:04)
--- NOTE | 2017-03-13 10:04 | NUR ---
TREATEMENT TEAM WAS HELD WITH THE FOLLOWING: DR. MARTINS, LACE INSPECTOR, RN, AT AND SW. DR. TIWARI ORDERED DISCHARGE FOR TODAY. FOLLOW UP APPOINTMENTS ARE SCHEDULED ADN MOTORCYCLE MECHANIC APPRENTICE BY FRIEND AT 11AM. DR. MARTINS WANTS PT TO HAVE UNIT NUMBER TO CALL HIM IF MEDS NEED ADJUSTED BEFORE HE SEES [facility] ON .
--- NOTE | 2017-03-13 11:00 | NUR ---
Goal,Exercise,& [employer] Patient did not attend group today. Encouraged patient to come to group but refused x 2. Patient did state "I'm just a person that enjoys being alone. And I'm going home soon,getting ready for that."
--- NOTE | 2017-03-13 11:25 | NUR ---
PATIENT IS ALERT AND ORIENTED X 4; ABLE TO VOICE NEEDS. DENIES ANY HALLUCINATION, DELUSIONS, HI/SI OR PAIN. PATIENT READY FOR DISCHARGE. ALL DISCHARGE INSTRUCTIONS REVEIW, ALL BELONGING GIVEN TO PATIENT. ALL PAPER WORK SIGNED. FRIEND PRESENT AND PATIENT ASSISTED IN W/C WITH NURSE TO PRIVATE VEHICLE. PATIENT DISCHARGED AT THIS TIME.
--- NOTE | 2017-03-13 11:31 | NUR ---
Pt was discharged home with his Insurance Examiner providing transportation. SW gave Pt number to unit and told him to call if he had a medication problem per Dr. Snow's wishes until he gets seen at [facility].
== END 2017-03-13 11:25 | disposition home health service (06) | DRG 885 ==
LOC: EDHOLD 14:24 → 3N 15:08
PROVIDERS: Family Medicine; Internal Medicine; Registered Nurse; ADMIT Psychiatry & Neurology Psychiatry
DX: F33.9 Major depressive disorder, recurrent, unspecified (principal); J96.10 Chronic respiratory failure, unspecified whether with hypoxia or hypercapnia; R45.851 Suicidal ideations; J44.9 Chronic obstructive pulmonary disease, unspecified; Z99.81 Dependence on supplemental oxygen; I10 Essential (primary) hypertension; D64.9 Anemia, unspecified; R73.9 Hyperglycemia, unspecified; F12.10 Cannabis abuse, uncomplicated; Z72.0 Tobacco use; Z86.73 Personal history of transient ischemic attack (TIA), and cerebral infarction without residual deficits; Z84.89 Family history of other specified conditions; Z88.6 Allergy status to analgesic agent; Z88.8 Allergy status to other drugs, medicaments and biological substances; Z79.899 Other long term (current) drug therapy; Z71.6 Tobacco abuse counseling

== ENCOUNTER 2017-05-04 11:52 | Inpatient (IN) | payer MEDICARE ==
[~2017-05-04] VITALS: Ht 177.8 cm; Wt 68.0 kg
--- NOTE | ~2017-05-04 | WRIGHTHP ---
[place], [place] PATIENT HISTORY AND PHYSICAL EXAM NAME: DARNELL JEAN BAPTISTE UNIT #: [id number] ROOM: 312 DOCTOR: Lj KLEIN,KENIA BIRTHDATE: [birth year] DOS: 05/05/2017 REASON FOR HOSPITALIZATION: Status post overdose on pills. HISTORY OF PRESENT ILLNESS: The patient was seen, chart reviewed. A 72-year-old white male who presents from [facility] after a suicide attempt by overdose on Ativan. The patient was cleared medically in to the ER and then sent to the psychiatric unit for further care and stabilization. The patient was pleasant and cooperative during the interview. He was on his bed. He mentioned that he has been feeling increasingly depressed since his in February 2017. He said that he was in this hospital before. He was started on medication for depression, which he tolerated well with some improvement and then got discharged to home. He mentioned that after he went to home, he could not do anything. He said that he has been falling, he could not walk. He was having shortness of breath. He said that he always took care of himself, so that when he gets old he can take care of himself and his . He said that his is gone now and he is having difficulty taking care of himself. He reports being depressed, down, sad, hopeless, helpless with lack of energy and motivation. He denied any symptoms of psychosis, maribel or hypomania. Besides the of his and not able to take care of himself, he was not able to identify any other specific stress. PAST MEDICAL HISTORY: Significant for brain aneurysm, chronic pain, chronic respiratory failure, COPD, history of CVA, hypertension and vitamin D deficiency. PAST PSYCHIATRIC HISTORY: One prior psychiatric hospitalization, history of depression. There is no suicide in the family. He denied having any gun at home. PAST SUBSTANCE ABUSE HISTORY: Denied any drugs or alcohol. SOCIAL HISTORY: He was born and raised in [place], [place], 2-year of college, once for 38 years. last February. He has 4 boys. He is retired. He lives by himself. MENTAL STATUS EXAMINATION: The patient was pleasant, cooperative, described his mood as "depressed." Affect was flat, constricted. Thought process goal directed. No flight of ideas, loosening of association. He denied auditory or visual hallucination. No delusion or paranoia noted. He still had fleeting suicidal ideation, but no intent or plan. Denied any homicidal ideation, intent or plan. Insight and judgment poor to fair. ASSESSMENT: Major depressive disorder, recurrent, severe without psychotic feature, still depressed and suicidal. PLAN: 1. I will discontinue his Seroquel. [place], [place] PATIENT HISTORY AND PHYSICAL EXAM NAME: DARNELL JEAN BAPTISTE UNIT #: [id number] ROOM: [facility] DOCTOR: Lj KLEIN,KENIA BIRTHDATE: [birth year] 2. I will increase his Remeron to 30 mg at night. 3. One to one therapy, psychoeducation, coping skills. 4. Encourage activity in groups. 5. Final medication management and discharge plan by the regular team. KENIA KLEIN MD CM:HISPHYS:PATIENT HISTORY AND PHYSICAL EXAMINATION [id number] Lj KLEIN 05/05/17 1423 interface
--- NOTE | ~2017-05-04 | PR ---
[place], [place] PROGRESS NOTE NAME: DARNELL JEAN BAPTISTE UNIT #: [id number] ROOM: 312 DOCTOR: LEAH MARTINS MD BIRTHDATE: [birth year] DOS: 05/08/2017 CHIEF COMPLAINT: "I am good to go, although I am pretty much on my own." SUMMARY OF THE VISIT: The patient was interviewed as he sat watching television in the dining area. He engaged readily in conversation. He does still appear somewhat down, but he minimizes and states he is feeling better. He denies any more crying spells and states that his sleep and appetite have improved. He reports of readiness to return home. When I did discuss with him outpatient plans and the fact that he is pretty much on his own and on an island by himself, he nodded in agreement and did state that is how life has turned out for him and he is trying to make the best of it. He is willing to consider outpatient counseling as well as seeing a nurse practitioner or a psychiatrist for medication management. He convincingly denies medication side effects. MENTAL STATUS: He is alert and oriented. Mood still seems somewhat depressed. There is no hypomania or maribel. There are no overt auditory or visual hallucinations. No delusions, no paranoia. For the most part, memory is intact. PLAN: At this point, I will maintain his current psychotropic regimen, continue to engage him in individual and espitia milieu activity social work therapist develops an outpatient support network for him. LEAH MARTINS MD CM:PNTRANS [id number] LEAH MARTINS MD 05/08/17 0945 interface
--- NOTE | ~2017-05-04 | PR ---
[place], [place] PROGRESS NOTE NAME: DARNELL JEAN BAPTISTE UNIT #: [id number] ROOM: 312 DOCTOR: LEAH MARTINS MD BIRTHDATE: [birth year] DOS: 05/07/2017 CHIEF COMPLAINT: "I am still kind of depressed, but I think I am getting better." SUMMARY OF THE VISIT: The patient was interviewed as he sat in the group therapy room with oxygen on and sitting in a wheelchair. He reported that he does still feel depressed. He does appear very depressed, but then he quickly started to minimize things when I talked about going into an assisted living or into acute rehab stay. He quickly stated he did not need ____ those things and that he was strong and would be able to go back home. He does appear very depressed and he does also appear somewhat weakened. He reports good sleep and appetite, although the validity of both of these is suspect. On mental status, he is alert and oriented with some time gaps. Mood does seem to be very depressed. He is flat, blunted with a constricted range. There is no hypomania or maribel present. No overt auditory or visual hallucinations. No delusions, no paranoia. Short, intermediate and long-term memory for the most part are intact. PLAN: I will go ahead and lower his Remeron from 30-22.5 to see if we can balance out serotonin and norepinephrine effects improving his mood. We will continue to work with him to see if he would consider an assisted living or 30-day rehab. I do think that that would benefit him in greatly offering him support as well as helping him build up his strength and stamina. We will engage in individual and espitia milieu activity, returning to the least restrictive environment when psychiatrically stable. LEAH MARTINS MD CM:PNTRANS [id number] LEAH MARTINS MD 05/07/17 1005 interface
--- NOTE | ~2017-05-04 | PR ---
[place], [place] PROGRESS NOTE NAME: DARNELL JEAN BAPTISTE UNIT #: [id number] ROOM: 312 DOCTOR: Lj KLEIN,KENIA BIRTHDATE: [birth year] DOS: 05/06/2017 PSYCHIATRIC PROGRESS NOTE SUBJECTIVE: Patient seen and spoke with the staff. Per staff, patient has been reporting anxiety, but he does not look like to be anxious. Reportedly, he also had a fall and did not hit his head. Patient was pleasant, cooperative. He was in his bed. When I asked him how he is doing, he said "not good." He then went on to talk about his fall and also talked about his back pain. He said that he did not hit his head. MENTAL STATUS EXAMINATION: Pleasant, cooperative. Described his mood as "not good." Affect constricted. Thought process, goal directed. No flight of ideas, loosening of association. He denied auditory or visual hallucination. No delusion or paranoia noted. He denied suicidal ideation, intent or plan. He also denied any homicidal ideation, intent or plan. Insight and judgment poor to fair. ASSESSMENT: 1. Major depressive disorder, recurrent, severe, without psychotic feature. 2. Cognitive disorder, not otherwise specified. PLAN: 1. Continue current medication and care. 2. Encourage activity and groups. 3. Final medication management and discharge plan per the regular team. KENIA KLEIN MD CM:PNTRANS 15 17 Lj KLEIN 05/06/17 2317 interface
--- NOTE | ~2017-05-04 | DS ---
[place], [place] DISCHARGE SUMMARY NAME: DARNELL JEAN BAPTISTE UNIT #: [id number] ROOM: 312 DOCTOR: LEAH MARTINS MD BIRTHDATE: [birth year] DOS: 05/09/2017 CHIEF COMPLAINT: "I ran out of my pills and got really depressed again." HISTORY OF PRESENT ILLNESS: This is a 72-year-old white male known to me from a previous admission here at the [facility]. The patient had presented to [facility] after a suicide attempt by overdose of Ativan. Once he was cleared medically in the Emergency Room at [facility], the patient continued to voice worsening depression with suicidal thoughts and he was transferred to the [facility] for further treatment. The patient reports that he had been doing fairly well until he ran out of his medicine and had been without his medicine for several weeks prior to the suicide attempt. Prior to this, while he was taking his medicine, he reports that it was significantly improving his mood. PAST MEDICAL HISTORY: Remarkable for history of a brain aneurysm, chronic pain, chronic respiratory failure with severe COPD, history of a CVA, hypertension, and vitamin D deficiency. SUMMARY OF HOSPITAL COURSE: The patient was admitted to the unit where he was restarted on his Remeron 22.5 mg at bedtime, hydroxyzine 50 mg 4 times a day was utilized as a nonaddicting antianxiety agent. The patient had previously been on Ativan, but did find that he tended to overuse it and given the fact that it was not only addicting but would cause respiratory depression, it was felt that the hydroxyzine would be a better alternative. It did work for him and he felt calmer during the day, able to rest at night. He convincingly denied any suicidal thoughts or homicidal thoughts and voiced a readiness to return home. Despite some of his physical ills, he felt that he would be able to maintain himself at home with some assistance and did not feel he needed any alternative placement option. The patient was discharged home then on 05/09/2017. MENTAL STATUS AT DISCHARGE: The patient is alert and oriented. Mood is strongly trending towards euthymia. Affect is appropriate. There are no symptoms of hypomania or maribel. There are no overt auditory or visual hallucinations. No delusions, no paranoia. Short term, intermediate, and long-term memory are intact. FINAL DIAGNOSES: Major depression, recurrent, severe. PLAN: His prescriptions have been printed and will be sent home with him. All the followup has been arranged by social service liaison. He knows to call the hospital; however, until such point that he has outpatient followup should a problem or question arise. [place], [place] DISCHARGE SUMMARY NAME: DARNELL JEAN BAPTISTE UNIT #: [id number] ROOM: 312 DOCTOR: LEAH MARTINS MD BIRTHDATE: [birth year] LEAH MARTINS MD CM:DISCHMIGUELINA 6 9 LEAH MARTINS MD 05/09/17949 interface
[~2017-05-04 11:52] MED LIST changes: +ATIVAN0.5 MG PO; +EC NAPROSYN375 MG PO; +HYDROXYZINE PAM25 M1 PO; +MIRTAZAPINE45 MG PO; +PROAIR HFA8.5 GM INH; +ULTRAM50 MG PO; +Vitamin D PO
[2017-05-04] MEDS ORDERED: VENTOLIN 02.5 MG/3 M INH (12:02)
[2017-05-04] MEDS ORDERED: ATIVAN0.5 MG PO (12:03)
[2017-05-04] MEDS ORDERED: VISTARIL50 MG PO (12:03)
[2017-05-04] MEDS ORDERED: REMERON45 M1 PO (12:04)
[2017-05-04] MEDS ORDERED: PROAIR RESPICL90 MCG INH (12:05)
[2017-05-04] MEDS ORDERED: 'zithromax250 MG PO (13:45)
[2017-05-04 16:21] VITALS: BP 137/76
[2017-05-04 17:16] VITALS: BP 137/76
[2017-05-04 20:15] VITALS: BP 106/66
[2017-05-05 07:58] VITALS: BP 110/72
[2017-05-05 08:35] LABS: BASO % 0.2 % (0.0-1.0); EOS # 0.1 10*3/uL (0.0-0.4); EOS % 2.4 % (1.0-4.0); HEMATOCRIT 36.4 % (42.0-52.0); HEMOGLOBIN 12.2 g/dl (14.0-18.0); LYMPH # 0.8 10*3/uL (1.3-4.4); LYMPH % 17.8 % (27.0-41.0); MEAN CELL VOLUME 90.5 fl (80.0-94.0); MEAN CORPUSCULAR HGB 30.3 pg (27.0-31.0); MEAN CORPUSCULAR HGB CONC 33.5 g/dl (33.0-37.0); MEAN PLATELET VOLUME 9.4 fl (9.6-12.3); MONO # 0.9 10*3/uL (0.1-1.0); MONO % 18.9 % (3.0-9.0); NEUT # 2.8 10*3/uL (2.3-7.9); NEUT % 60.5 % (47.0-73.0); PLATELET COUNT AUTOMATED 132 10*3/uL (130-400); RED BLOOD COUNT 4.02 10*6/uL (4.50-5.90); RED CELL DISTRI WIDTH 13.2 % (0-14.5); WHITE BLOOD COUNT 4.6 10*3/uL (4.8-10.8)
[2017-05-05 09:04] LABS: ALBUMIN 2.9 gm/dl (3.1-4.5); ALKALINE PHOSPHATASE 69 U/L (45-117); BUN 19 mg/dl (7-24); CHLORIDE 107 mmol/L (98-107); CHOLESTEROL 150 mg/dL (<200); CREATININE 0.96 mg/dL (0.70-1.30); HDL CHOLESTEROL 54 mg/dl (40-60); LDL CHOLESTEROL 84 mg/dL (9-159); POTASSIUM 4.1 mmol/L (3.5-5.1); SGOT/AST 18 IU/L (3-35); SGPT/ALT 20 U/L (12-78); SODIUM 143 mmol/L (136-145); TOTAL PROTEIN 6.1 gm/dL (6.4-8.2); TRIGLYCERIDES 62 mg/dl (<150); VLDL CHOLESTEROL 12 mg/dL (6-40)
[2017-05-05 20:21] VITALS: BP 130/80
[2017-05-06 07:53] VITALS: BP 120/67
[2017-05-06 09:53] VITALS: BP 100/67
[2017-05-06 20:07] VITALS: BP 112/62
[2017-05-07 08:06] VITALS: BP 133/77
[2017-05-07 19:44] VITALS: BP 139/66
[2017-05-08 08:00] VITALS: BP 122/64
[2017-05-08 20:00] VITALS: BP 138/73
[2017-05-09 07:34] VITALS: BP 126/66
[2017-05-09] MEDS ORDERED: HYDROXYZINE PAM25 M1 PO (09:22)
[2017-05-09] MEDS ORDERED: MIRTAZAPINE45 MG PO (09:22)
== END 2017-05-09 18:00 | disposition home or self-care (01) | DRG 885 ==
LOC: 3N 11:52
PROVIDERS: Psychiatry & Neurology Psychiatry
DX: F33.2 Major depressive disorder, recurrent severe without psychotic features (principal); J96.10 Chronic respiratory failure, unspecified whether with hypoxia or hypercapnia; J44.9 Chronic obstructive pulmonary disease, unspecified; R45.851 Suicidal ideations; Z99.81 Dependence on supplemental oxygen; F12.10 Cannabis abuse, uncomplicated; F17.210 Nicotine dependence, cigarettes, uncomplicated; I10 Essential (primary) hypertension; G89.29 Other chronic pain; E55.9 Vitamin D deficiency, unspecified; F09 Unspecified mental disorder due to known physiological condition; Z79.899 Other long term (current) drug therapy; Z88.5 Allergy status to narcotic agent; Z86.73 Personal history of transient ischemic attack (TIA), and cerebral infarction without residual deficits; Z88.6 Allergy status to analgesic agent; Z71.6 Tobacco abuse counseling

== ENCOUNTER 2017-06-22 10:47 | Inpatient (IN) | payer MEDICARE ==
[~2017-06-22] VITALS: Ht 177.8 cm; Wt 83.5 kg
--- NOTE | ~2017-06-22 | CON ---
[place], [place] REPORT OF CONSULTATION NAME: DARNELL JEAN BAPTISTE UNIT #: [id number] ROOM: 403 DOCTOR: RAFAEL JACK MD BIRTHDATE: [birth year] DOS: 06/23/2017 PALLIATIVE CONSULTATION NOTE ATTENDING PHYSICIAN: Max Ortiz DO HISTORY OF PRESENT ILLNESS: The patient is a 72-year-old gentleman with a past medical history of: 1. Present admission to [facility] for sepsis, pneumonia. 2. Acute exacerbation of COPD. 3. Lactic acidosis. 4. Elevated alcohol level. 5. Nicotine smoke dependence. 6. Marijuana abuse. 7. Chronic respiratory failure, with home oxygen dependence. 8. Vitamin D deficiency. 9. Illegal drug abuse. The patient with advanced lung disease with recurrent admissions to [facility] for adult failure to thrive and difficulty in staying home with multiple medical issues, generalized weakness. The patient says he gets short of breath off and on and uses oxygen and at the same time as mentioned above, he is using marijuana, drinks alcohol and smokes cigarettes. The patient says he lives at home by himself and would like to continue to live by himself as long as he can. There are no complaints of any chest pain, dizziness or fainting episodes. No other GI or urinary symptoms. The patient is improving with present treatment. SOCIAL HISTORY: History of illicit drug abuse as mentioned above, alcohol and nicotine smoke dependence. FAMILY HISTORY: Noncontributory. MEDICATIONS: Zoloft, lorazepam, DuoNeb, cyclobenzaprine, azithromycin, corticosteroids. PHYSICAL EXAMINATION: GENERAL: Alert and oriented x 3, appears cachectic, generalized muscle wasting and generalized weakness. HEENT AND NECK: Extraocular movements are intact. Sclerae are anicteric. Oral mucosa is moist and clean. No obvious facial weakness. Neck is supple without any lymphadenopathy. No thyromegaly. No JVD. No carotid arterial bruits. LUNGS: Clear to auscultation. No wheezing. No rhonchi. CARDIOVASCULAR SYSTEM: Heart rate is regular in rate and rhythm. S1 and S2 normally audible. No significant murmur or any other abnormal cardiac sounds. ABDOMEN: Soft, nontender. No obvious organomegaly. Bowel sounds are present. No obvious herniation. EXTREMITIES: Without significant cyanosis or edema. Warm to touch. CENTRAL NERVOUS SYSTEM: Alert and oriented x 3. Cranial nerves II-XII are [place], [place] REPORT OF CONSULTATION NAME: DARNELL JEAN BAPTISTE UNIT #: [id number] ROOM: 403 DOCTOR: RAFAEL JACK MD BIRTHDATE: [birth year] intact. Speech is normal. The patient is able to move all extremities. Normal muscle strength. Deep tendon reflexes are equal on both sides. Plantars were downgoing. IMPRESSION: 1. Advanced adult failure to thrive with advanced end-stage chronic obstructive pulmonary disease with acute over chronic respiratory failure and oxygen dependence. The patient maintained on bronchodilators, wants to continue to go back to his home living situation. I had a detailed discussion with the patient about his other options, which include assisted living placement where he would have more help available and I have requested palliative care nurse, Clare to follow him at home. The patient is not interested in hospice consult at this time. The patient apparently has Meals on Wheels arranged for home and he would like to go home with visiting nurses, who have been following him at home in the past. 2. Nicotine smoke dependence with advanced end-stage chronic obstructive pulmonary disease with chronic respiratory failure. The patient encouraged to stop smoking cigarettes. 3. Major depression, recurrent, mild, apparently controlled with Zoloft, which is being continued. 4. Severe generalized anxiety disorder. apparently made worse with his advanced lung disease and chronic respiratory failure. The patient kept on lorazepam on as needed basis for his anxiety episodes. 5. Palliative care to continue to follow the patient at home in case he needs more help or if he wants to go on hospice to keep him comfortable at home. 6. Because the patient has advanced end-stage lung disease, continued nicotine smoke dependence and not taking good care of himself at home, the patient's prognosis is suboptimal and remains guarded. Thank you, Dr. Max Ortiz for asking me to see the patient. Palliative care will continue to follow the patient. RAFAEL JACK MD CM:CONSTR:REPORT OF CONSULTATION 19 06/27/[id number] interface
[~2017-06-22 10:47] MED LIST changes: +'zithromax250 MG PO; +PROAIR RESPICL90 MCG INH; +REMERON45 M1 PO; +VENTOLIN 02.5 MG/3 M INH; +VISTARIL50 MG PO
[2017-06-22 10:56] VITALS: BP 140/83
[2017-06-22] MEDS ORDERED: ZOLOFT25 MG PO (11:09)
[2017-06-22] MEDS ORDERED: LORAZEPAM0.5 MG PO (11:09)
[2017-06-22] MEDS ORDERED: VENTOLIN 02.5 MG/3 M INH (11:10)
[2017-06-22] MEDS ORDERED: PROAIR HFA8.5 GM INH (11:10)
[2017-06-22 11:16] LABS: BASO % 0.7 % (0.0-1.0); EOS # 0.2 10*3/uL (0.0-0.4); HEMATOCRIT 41.7 % (42.0-52.0); HEMOGLOBIN 13.6 g/dl (14.0-18.0); LYMPH # 1.4 10*3/uL (1.3-4.4); LYMPH % 23.5 % (27.0-41.0); MEAN CELL VOLUME 89.9 fl (80.0-94.0); MEAN CORPUSCULAR HGB 29.3 pg (27.0-31.0); MEAN CORPUSCULAR HGB CONC 32.6 g/dl (33.0-37.0); MEAN PLATELET VOLUME 8.8 fl (9.6-12.3); MONO # 0.5 10*3/uL (0.1-1.0); MONO % 7.9 % (3.0-9.0); NEUT # 3.8 10*3/uL (2.3-7.9); NEUT % 64.6 % (47.0-73.0); PLATELET COUNT AUTOMATED 165 10*3/uL (130-400); RED BLOOD COUNT 4.64 10*6/uL (4.50-5.90); RED CELL DISTRI WIDTH 14.4 % (0-14.5); WHITE BLOOD COUNT 5.9 10*3/uL (4.8-10.8)
[2017-06-22 11:25] LABS: ACT PARTIAL THROMBO TIME 25.5 SECONDS (20.8-31.5)
[2017-06-22 11:34] LABS: ALBUMIN 3.9 gm/dl (3.1-4.5); ALKALINE PHOSPHATASE 69 U/L (45-117); BUN 9 mg/dl (7-24); CHLORIDE 102 mmol/L (98-107); CREATININE 0.84 mg/dL (0.70-1.30); POTASSIUM 4.1 mmol/L (3.5-5.1); SGOT/AST 15 IU/L (3-35); SGPT/ALT 20 U/L (12-78); SODIUM 139 mmol/L (136-145); TOTAL PROTEIN 7.4 gm/dL (6.4-8.2)
[2017-06-22 11:37] LABS: ACETAMINOPHEN (TYLENOL) < 2.0 ug/ml (10-30); TROPONIN I < 0.015 ng/ml (<0.045)
[2017-06-22 12:51] VITALS: BP 118/65
[2017-06-22 13:45] VITALS: BP 128/77
[2017-06-22 16:00] VITALS: BP 149/87
[2017-06-22 20:00] VITALS: BP 135/72
[2017-06-23] VITALS: BP 135/80
[2017-06-23 06:24] LABS: LYMPH # 0.6 10*3/uL (1.3-4.4); LYMPH % 8.7 % (27.0-41.0); MEAN CELL VOLUME 90.1 fl (80.0-94.0); MEAN CORPUSCULAR HGB 28.9 pg (27.0-31.0); MEAN PLATELET VOLUME 9.9 fl (9.6-12.3); MONO # 0.2 10*3/uL (0.1-1.0); NEUT # 5.6 10*3/uL (2.3-7.9); PLATELET COUNT AUTOMATED 159 10*3/uL (130-400); RED BLOOD COUNT 3.95 10*6/uL (4.50-5.90); RED CELL DISTRI WIDTH 14.3 % (0-14.5); WHITE BLOOD COUNT 6.3 10*3/uL (4.8-10.8)
[2017-06-23 06:25] LABS: HEMATOCRIT 35.6 % (42.0-52.0); HEMOGLOBIN 11.4 g/dl (14.0-18.0)
[2017-06-23 06:33] LABS: ALBUMIN 2.9 gm/dl (3.1-4.5); ALKALINE PHOSPHATASE 58 U/L (45-117); BUN 16 mg/dl (7-24); CHLORIDE 108 mmol/L (98-107); CHOLESTEROL 166 mg/dL (<200); CREATININE 0.87 mg/dL (0.70-1.30); FREE T4 1.08 ng/dl (0.76-1.46); HDL CHOLESTEROL 70 mg/dl (40-60); LDL CHOLESTEROL 87 mg/dL (9-159); PHOSPHOROUS 3.2 mg/dL (2.5-4.9); POTASSIUM 4.2 mmol/L (3.5-5.1); SGOT/AST 12 IU/L (3-35); SGPT/ALT 18 U/L (12-78); SODIUM 141 mmol/L (136-145); TOTAL PROTEIN 6.1 gm/dL (6.4-8.2); TRIGLYCERIDES 44 mg/dl (<150); VLDL CHOLESTEROL 9 mg/dL (6-40)
[2017-06-23 06:37] LABS: THYROID STIM HORMONE (HS) 0.679 uIU/ml (0.358-4.75)
[2017-06-23 07:30] LABS: VITAMIN D, 25-HYDROXY 32.6 ng/mL (30-100)
[2017-06-23 08:00] VITALS: BP 147/78
[2017-06-23 12:00] VITALS: BP 148/70
[2017-06-23 16:00] VITALS: BP 132/71
[2017-06-23 20:00] VITALS: BP 115/65
[2017-06-24] VITALS: BP 119/61
[2017-06-24 06:22] LABS: HEMOGLOBIN 10.9 g/dl (14.0-18.0); MEAN CELL VOLUME 90.4 fl (80.0-94.0); MEAN CORPUSCULAR HGB CONC 32.1 g/dl (33.0-37.0); MEAN PLATELET VOLUME 9.4 fl (9.6-12.3); PLATELET COUNT AUTOMATED 151 10*3/uL (130-400); RED BLOOD COUNT 3.76 10*6/uL (4.50-5.90); RED CELL DISTRI WIDTH 14.9 % (0-14.5); WHITE BLOOD COUNT 7.3 10*3/uL (4.8-10.8)
[2017-06-24 06:50] LABS: ALBUMIN 3.2 gm/dl (3.1-4.5); ALKALINE PHOSPHATASE 49 U/L (45-117); BUN 22 mg/dl (7-24); CHLORIDE 106 mmol/L (98-107); POTASSIUM 4.4 mmol/L (3.5-5.1); SGOT/AST 13 IU/L (3-35); SGPT/ALT 16 U/L (12-78); SODIUM 140 mmol/L (136-145)
[2017-06-24 07:08] LABS: PLATELET SUFFICIENCY NORMAL (NORMAL); TOTAL CELLS COUNTED 100 #CELLS
[2017-06-24 08:00] VITALS: BP 130/67
[2017-06-24 12:00] VITALS: BP 135/75
[2017-06-24] MEDS ORDERED: CYCLOBENZAPRINE10 MG PO (13:59)
[2017-06-24] MEDS ORDERED: PREDNISONE10 MG PO (14:01)
[2017-06-24] MEDS ORDERED: ZITHROMAX250 MG PO (14:01)
== END 2017-06-24 14:30 | disposition home or self-care (01) | DRG 871 ==
LOC: ED 10:47 → 4E 12:37 → EDHOLD 12:37 → 4E 12:51
PROVIDERS: Family Medicine; Nurse Practitioner Family; Registered Nurse
DX: A41.9 Sepsis, unspecified organism (principal); J18.9 Pneumonia, unspecified organism; E87.2 Acidosis; J96.10 Chronic respiratory failure, unspecified whether with hypoxia or hypercapnia; Z99.81 Dependence on supplemental oxygen; R45.851 Suicidal ideations; J44.0 Chronic obstructive pulmonary disease with (acute) lower respiratory infection; J44.1 Chronic obstructive pulmonary disease with (acute) exacerbation; F33.9 Major depressive disorder, recurrent, unspecified; R65.20 Severe sepsis without septic shock; Z66 Do not resuscitate; Z51.5 Encounter for palliative care; Y90.4 Blood alcohol level of 80-99 mg/100 ml; F17.210 Nicotine dependence, cigarettes, uncomplicated; F12.10 Cannabis abuse, uncomplicated; G89.29 Other chronic pain; E55.9 Vitamin D deficiency, unspecified; F19.90 Other psychoactive substance use, unspecified, uncomplicated; Z88.6 Allergy status to analgesic agent; Z88.5 Allergy status to narcotic agent; Z86.73 Personal history of transient ischemic attack (TIA), and cerebral infarction without residual deficits; Z83.6 Family history of other diseases of the respiratory system; Z79.899 Other long term (current) drug therapy; Z79.51 Long term (current) use of inhaled steroids; Z71.6 Tobacco abuse counseling